=== PATIENT | male | born 1965 | race Caucasian/White ===

== ENCOUNTER 2024-10-12 11:41 | Inpatient (IN) | payer OTHER ==
[2024-10-12 12:48] LABS: Influenza A Ag Negative; Influenza B Ag Negative; SARS-CoV-2 Antigen Rapid Res Negative (Negative)
--- NOTE | 2024-10-12 13:39 | RAD REPORT ---
Procedure: Chest Single View HISTORY: Fever COMPARISON: none FINDINGS: The lungs appear clear of acute infiltrate. No significant pleural effusion noted. The heart appears borderline enlarged. IMPRESSION: No acute abnormality is displayed.
[2024-10-12] MEDS ORDERED: NA CHLORIDE 0.9% 1,000 ML ONE (14:04)
[2024-10-12 14:41] LABS: Absolute Lymphocytes (CBC) 1.5 K/uL (0.7-4.9); Hematocrit 45.1 % (39.6-49.0); Hemoglobin 16.4 g/dL (13.6-17.9); MCH 33.5 pg (27.0-35.0); MCHC 36.3 g/dL (32.0-36.0); MCV 92.1 fL (80-100); MPV 8.6 fL (7.6-11.3); Nucleated RBC Absolute Count 0.0 (0-0); Nucleated Red Blood Cells % 0.0 % (0-0); RBC Red Blood Cell Count 4.90 M/uL (4.33-5.43); White Blood Count 6.70 thou/uL (4.3-10.9)
[2024-10-12 14:55] LABS: ALT/SGPT 62.0 U/L (16-61); AST/SGOT 72.0 U/L (15-37); Albumin 4.1 g/dL (3.4-5.0); Albumin/Globulin Ratio 1.1 (1.1-1.8); Alkaline Phosphatase 82.0 U/L (45-117); Anion Gap 18.0 mEq/L (5.0-15.0); BUN Blood Urea Nitrogen 8.0 mg/dL (7-18); Globulin 3.7 g/dL (2.3-3.5); Glucose Level 99.0 mg/dL (74-106); Lipase 104.0 U/L (13-75); Potassium 4.0 mEq/L (3.5-5.1)
--- NOTE | 2024-10-12 15:00 | ER ---
Nurse's Notes [facility] Name: Gisela Gomes Age: 59 yrs Sex: Male : 1965 Arrival Date: 10/12/2024 Time: 11:41 Bed 15 Private MD: Diagnosis: Hyponatremia, alcoholism Presentation: 10/12 11:49 Chief complaint: EMS states: patient has complains of fevers and "feeling off" for 10 ap3 days. patient reports that he has been taking Tylenol and ibuprofen for his fevers. EMS states his oral temperature was 98.0 on their arrival. Coronavirus screen: Client presents with at least one sign or symptom that may indicate coronavirus-19. Ebola Screen: No symptoms or risks identified at this time. Risk Assessment: Do you want to hurt yourself or someone else? Patient reports no desire to harm self or others. Onset of symptoms was October 02, 2024. 11:49 Method Of Arrival: EMS: [facility] ap3 12:03 Initial Sepsis Screen: Does the patient meet any 2 criteria? No. Patient's initial ar8 sepsis screen is negative. Does the patient have a suspected source of infection? No. Patient's initial sepsis screen is negative. 12:03 Acuity: BIENVENIDO 3 ar8 15:00 Acuity: BIENVENIDO 2 ap3 Triage Assessment: 12:05 General: Appears in no apparent distress. Behavior is calm, cooperative, appropriate ar8 for age. Pain: Denies pain. Historical: - Allergies: 12:05 No Known Allergies; ar8 - PMHx: 12:05 Hypertensive disorder; Atrial fibrillation; ar8 - PSHx: 12:05 None; ar8 - Immunization history:: Adult Immunizations up to date. - Infectious Disease History:: Denies. - Social history:: Smoking status: Patient denies any tobacco usage or history of. Screenin:30 [facility] ED Fall Risk Assessment (Adult) History of falling in the last 3 months, kc6 including since admission No falls in past 3 months (0 pts) Confusion or Disorientation No (0 pts) Intoxicated or Sedated No (0 pts) Impaired Gait No (0 pts) Mobility Assist Device Used No (0 pt) Altered Elimination No (0 pt) Score/Fall Risk Level 0 - 2 = Low Risk Oriented to surroundings. Abuse screen: Denies threats or abuse. Denies injuries from another. Nutritional screening: No deficits noted. Tuberculosis screening: No symptoms or risk factors identified. Assessment: 14:00 Respiratory: Airway is patent Respiratory effort is even, unlabored, Respiratory ap3 pattern is regular, symmetrical. 14:00 General: Reports fever for > 3 days, feeling "off". ap3 14:00 General: Appears in no apparent distress. Behavior is calm, cooperative, appropriate ap3 for age. Neuro: Level of Consciousness is awake, alert, obeys commands, Oriented to person, place, time, situation. Cardiovascular: Patient's skin is warm and dry. 15:30 General: Appears in no apparent distress. comfortable, well groomed, well developed, kc6 Behavior is cooperative, appropriate for age, anxious, Reports fever for > 3 days, feeling ill for > 3 days. Pain: Denies pain. Neuro: Level of Consciousness is awake, alert, obeys commands, Oriented to person, place, time, situation, Appropriate for age. Cardiovascular: Capillary refill < 3 seconds. Respiratory: Airway is patent Trachea midline Respiratory effort is even, unlabored, Respiratory pattern is regular, symmetrical. GI: No signs and/or symptoms were reported involving the gastrointestinal system. : No signs and/or symptoms were reported regarding the genitourinary system. EENT: No signs and/or symptoms were reported regarding the EENT system. Derm: No signs and/or symptoms reported regarding the dermatologic system. Skin is intact, is healthy with good turgor, Skin is pink, warm \\T\\ dry. Musculoskeletal: No signs and/or symptoms reported regarding the musculoskeletal system. Circulation, motion, and sensation intact. Range of motion: intact in all extremities. 16:30 Reassessment: Patient appears in no apparent distress at this time. No changes from kc6 previously documented assessment. Patient and/or family updated on plan of care and expected duration. Pain level reassessed. Patient is alert, oriented x 3, equal unlabored respirations, skin warm/dry/pink. Vital Signs: 12:03 BP 138 / 80; Pulse 74; Resp 20; Temp 98.1; Pulse Ox 98% ; Weight 106.59 kg; Height 5 ar8 ft. 10 in. ; Pain 0/10; 15:03 BP 131 / 79; Pulse 84; Resp 18; Pulse Ox 99% on R/A; ap3 15:36 BP 137 / 76; Pulse 90; Resp 18 S; Pulse Ox 99% on R/A; kc6 16:55 BP 148 / 91; Pulse 91; Resp 19 S; Pulse Ox 98% on R/A; kc6 12:03 Body Mass Index 33.72 (106.59 kg, 177.8 cm) ar8 12:03 Pain Scale: Adult ar8 ED Course: 11:45 Patient arrived in ED. im 11:48 Juancho Rojas MD is Attending Physician. sp3 12:05 Triage completed. ar8 12:05 Arm band placed on right wrist. ar8 13:14 CXR XRAY In Process Unspecified. EDMS 14:09 Inserted saline lock: 20 gauge in right antecubital area, using aseptic technique. ts3 Blood collected. Flushed with 10 mL NS. 14:09 First set of blood cultures drawn by me. ts3 14:19 Second set of blood cultures drawn by me. ts3 14:21 Initial lab(s) drawn, by medical laboratory technicians, sent to lab. ts3 14:59 Abel Cain is Hospitalizing Provider. sp3 15:16 Odalis Juan, RN is Primary Nurse. kc6 15:28 Client placed on continuous cardiac and pulse oximetry monitoring. NIBP monitoring ap3 applied. conveyor monitor on. Pulse ox on. NIBP on. 15:30 Report received from Jessica Goodman RN. kc6 15:30 Patient has correct armband on for positive identification. Bed in low position. Call kc light in reach. Side rails up X 1. conveyor monitor on. Pulse ox on. NIBP on. Door closed. Noise minimized. Lights dimmed. Pillow given. Verbal reassurance given. 15:30 Patient maintains SpO2 saturation greater than 95% on room air. kc6 15:31 CT Abd/Pelvis - IV Contrast Only In Process Unspecified. EDMS 16:08 Kwame San MD is Hospitalizing Provider. sp3 17:28 No provider procedures requiring assistance completed. Patient admitted, IV remains in kc6 place. Administered Medications: 14:13 Drug: NS 0.9% IV 1000 ml IV at 1 bolus Per protocol; to be given as a bolus over 60 ap3 minutes Route: IV; Rate: 1 bolus; Site: right antecubital; 15:30 Follow up: Response: No adverse reaction; IV Status: Completed infusion; IV Intake: kc6 1000ml 16:49 Drug: Ativan IVP 2 mg IVP once Route: IVP; Site: right antecubital; kc6 17:29 Follow up: Response: No adverse reaction; Anxiety decreased; RASS: Alert and Calm (0) kc6 16:49 Drug: Thiamine PO 200 mg PO once Route: PO; kc6 17:29 Follow up: Response: No adverse reaction kc6 Medication: 17:28 VIS not applicable for this client. kc6 Intake: 15:30 IV: 1000ml; Total: 1000ml. kc6 Outcome: 14:59 Decision to Hospitalize by Provider. sp3 16:09 Decision to Hospitalize by Provider. sp3 17:28 Admitted to ER Hold. Please see [facility] for further documentation. kc6 17:28 Condition: stable 17:28 Instructed on the need for admit, 18:18 Patient left the ED. kc6 Signatures: Dispatcher [employer] EDJessica Mosqueda RN RN ap3 Juancho Rojas MD MD sp3 Odalis Juan RN RN kc6 Elena Kamara Taisha ts3 Willian Gann RN RN ar8 Corrections: (The following items were deleted from the chart) 14:22 14:21 Inserted saline lock: 20 gauge in right antecubital area, using aseptic ts3 technique. Blood collected. Flushed with 10 mL NS ts3
--- NOTE | 2024-10-12 15:00 | EDPHYS ---
Physician Documentation [facility] Name: Gisela Gomes Age: 59 yrs Sex: Male : 1965 Arrival Date: 10/12/2024 Time: 11:41 Bed 15 Private MD: ED Physician Juancho Rojas HPI: 10/12 14:05 This 59 yrs old Male presents to ER via EMS with complaints of Fever. sp3 14:05 59-year-old male with history of hypertension presents to the ED with chief complaint sp3 fever for 10 days with Tmax of 102 this morning. He states he has mild dizziness and bodyaches however no other symptoms. He says he feels "dehydrated". Urine output is still normal. He denies any neck pain or stiffness, travel history, known sick contacts, cough, congestion, shortness of breath, chest pain, abdominal pain, vomiting, diarrhea, nausea, syncope, near syncope, rash, symptoms, or any other signs or symptoms on ROS at this time.. Historical: - Allergies: 12:05 No Known Allergies; ar8 - PMHx: 12:05 Hypertensive disorder; Atrial fibrillation; ar8 - PSHx: 12:05 None; ar8 - Immunization history:: Adult Immunizations up to date. - Infectious Disease History:: Denies. - Social history:: Smoking status: Patient denies any tobacco usage or history of. ROS: 14:06 Eyes: Negative for injury, pain, redness, and discharge, ENT: Negative for injury, sp3 pain, and discharge, Neck: Negative for injury, pain, and swelling, Cardiovascular: Negative for chest pain, palpitations, and edema, Respiratory: Negative for shortness of breath, cough, wheezing, and pleuritic chest pain, Abdomen/GI: Negative for abdominal pain, nausea, vomiting, diarrhea, and constipation, Back: Negative for injury and pain, MS/Extremity: Negative for injury and deformity, Skin: Negative for injury, rash, and discoloration, Neuro: Negative for headache, weakness, numbness, tingling, and seizure, Psych: Negative for depression, anxiety, suicide ideation, homicidal ideation, and hallucinations, Allergy/Immunology: Negative for hives, rash, and allergies, Endocrine: Negative for neck swelling, polydipsia, polyuria, polyphagia, and marked weight changes, 14:06 All other systems are negative, Exam: 14:06 Constitutional: This is a well developed, well nourished patient who is awake, alert, sp3 and in no acute distress. Head/Face: Normocephalic, atraumatic. Eyes: Pupils equal round and reactive to light, extra-ocular motions intact. Lids and lashes normal. Conjunctiva and sclera are non-icteric and not injected. Cornea within normal limits. Periorbital areas with no swelling, redness, or edema. Neck: Trachea midline, no thyromegaly or masses palpated, and no cervical lymphadenopathy. Supple, full range of motion without nuchal rigidity, or vertebral point tenderness. No Meningismus. Chest/axilla: Normal chest wall appearance and motion. Nontender with no deformity. No lesions are appreciated. Cardiovascular: Regular rate and rhythm with a normal S1 and S2. No gallops, murmurs, or rubs. Normal PMI, no JVD. No pulse deficits. Respiratory: Lungs have equal breath sounds bilaterally, clear to auscultation and percussion. No rales, rhonchi or wheezes noted. No increased work of breathing, no retractions or nasal flaring. Abdomen/GI: Soft, non-tender, with normal bowel sounds. No distension or tympany. No guarding or rebound. No evidence of tenderness throughout. Back: No spinal tenderness. No costovertebral tenderness. Full range of motion. Skin: Warm, dry with normal turgor. Normal color with no rashes, no lesions, and no evidence of cellulitis. MS/ Extremity: Pulses equal, no cyanosis. Neurovascular intact. Full, normal range of motion. Neuro: Awake and alert, GCS 15, oriented to person, place, time, and situation. Cranial nerves II-XII grossly intact. Motor strength 5/5 in all extremities. Sensory grossly intact. Cerebellar exam normal. Normal gait. Psych: Awake, alert, with orientation to person, place and time. Behavior, mood, and affect are within normal limits. Vital Signs: 12:03 BP 138 / 80; Pulse 74; Resp 20; Temp 98.1; Pulse Ox 98% ; Weight 106.59 kg; Height 5 ar8 ft. 10 in. ; Pain 0/10; 15:03 BP 131 / 79; Pulse 84; Resp 18; Pulse Ox 99% on R/A; ap3 15:36 BP 137 / 76; Pulse 90; Resp 18 S; Pulse Ox 99% on R/A; kc6 16:55 BP 148 / 91; Pulse 91; Resp 19 S; Pulse Ox 98% on R/A; kc6 12:03 Body Mass Index 33.72 (106.59 kg, 177.8 cm) ar8 12:03 Pain Scale: Adult ar8 MDM: 12:07 Medical Screening Exam initiated sp3 14:07 Data reviewed: vital signs, nurses notes, EMS record, lab test result(s), radiologic sp3 studies. ED course: 59-year-old male with PMH above now with Tmax fever of 102 afebrile in the ED. Normal vital signs in ED. Demential diagnosis includes viral illness, influenza, COVID-19, strep pharyngitis, pneumonia, among others. I am not highly suspicious of sepsis, shock or any other critical illness. Chest x-ray and initial swabs are all negative. Will obtain general labs and hydrate patient due to length of symptoms. If workup negative, we will safely discharge patient home with diagnosis of viral illness. Patient in no acute distress resting comfortably. He is okay with the plan.. 14:58 ED course: Discussed with Dr. Emmanuel who states he is checked out to the hospitalist over sp3 the weekend. We will admit to hospitalist service at this time.. 10/12 12:07 Order name: COVID-19 Ag + Flu A+B Ag; Complete Time: 13:47 sp3 10/12 12:07 Order name: Group A Streptococcus Rapid; Complete Time: 13:47 sp3 10/12 12:51 Order name: Throat Culture EDMS 10/12 13:55 Order name: CBC with Diff; Complete Time: 15:45 sp3 10/12 13:55 Order name: CMP; Complete Time: 15:08 sp3 10/12 13:55 Order name: Lipase; Complete Time: 15:08 sp3 10/12 13:55 Order name: Blood Culture Adult (2) sp3 10/12 14:50 Order name: CBC Smear Scan; Complete Time: 15:45 EDMS 10/12 14:57 Order name: UA Rfx Lalito Cult if indicated sp3 10/12 16:10 Order name: Osmolality, Serum la1 10/12 16:10 Order name: Uric Acid la1 10/12 16:10 Order name: Urine Osmolality la1 10/12 16:10 Order name: Urine Sodium Random la1 10/12 16:10 Order name: TSH la1 10/12 16:10 Order name: Cortisol la1 10/12 16:10 Order name: BNP la1 10/12 16:23 Order name: BMP la1 10/12 16:44 Order name: Basic Metabolic Panel EDMS 10/12 16:44 Order name: Basic Metabolic Panel EDMS 10/12 16:44 Order name: Basic Metabolic Panel EDMS 10/12 16:44 Order name: CBC with Automated Diff EDMS 10/12 16:44 Order name: CBC with Automated Diff EDMS 10/12 16:44 Order name: CBC with Automated Diff EDMS 10/12 16:44 Order name: CBC with Automated Diff EDMS 10/12 16:44 Order name: CBC with Automated Diff EDMS 10/12 16:44 Order name: CBC with Automated Diff EDMS 10/12 16:44 Order name: CBC with Automated Diff EDMS 10/12 16:44 Order name: CBC with Automated Diff EDMS 10/12 16:44 Order name: Comprehensive Metabolic Panel EDMS 10/12 16:44 Order name: Comprehensive Metabolic Panel EDMS 10/12 16:44 Order name: Comprehensive Metabolic Panel EDMS 10/12 16:44 Order name: Comprehensive Metabolic Panel EDMS 10/12 16:44 Order name: Comprehensive Metabolic Panel EDMS 10/12 16:44 Order name: Comprehensive Metabolic Panel EDMS 10/12 16:44 Order name: Comprehensive Metabolic Panel EDMS 10/12 16:44 Order name: Comprehensive Metabolic Panel EDMS 10/12 16:44 Order name: Magnesium EDMS 10/12 16:44 Order name: Magnesium EDMS 10/12 16:44 Order name: Magnesium EDMS 10/12 16:44 Order name: Magnesium EDMS 10/12 16:44 Order name: Magnesium EDMS 10/12 16:44 Order name: Magnesium EDMS 10/12 16:45 Order name: Magnesium EDMS 10/12 16:45 Order name: Phosphorus EDMS 10/12 16:45 Order name: Phosphorus EDMS 10/12 16:45 Order name: Phosphorus EDMS 10/12 16:45 Order name: Phosphorus EDMS 10/12 16:45 Order name: Phosphorus EDMS 10/12 16:45 Order name: Phosphorus EDMS 10/12 16:45 Order name: Phosphorus EDMS 10/12 12:07 Order name: CXR XRAY; Complete Time: 13:47 sp3 10/12 15:09 Order name: CT Abd/Pelvis - IV Contrast Only; Complete Time: 15:45 sp3 10/12 16:47 Order name: Delirium Tremens Prophylaxis-IV Meds EDMS 10/12 13:55 Order name: IV Saline Lock; Complete Time: 14:21 sp3 10/12 13:55 Order name: Labs collected and sent; Complete Time: 14:21 sp3 Administered Medications: 14:13 Drug: NS 0.9% IV 1000 ml IV at 1 bolus Per protocol; to be given as a bolus over 60 ap3 minutes Route: IV; Rate: 1 bolus; Site: right antecubital; 15:30 Follow up: Response: No adverse reaction; IV Status: Completed infusion; IV Intake: kc6 1000ml 16:49 Drug: Ativan IVP 2 mg IVP once Route: IVP; Site: right antecubital; kc6 17:29 Follow up: Response: No adverse reaction; Anxiety decreased; RASS: Alert and Calm (0) kc6 16:49 Drug: Thiamine PO 200 mg PO once Route: PO; kc6 17:29 Follow up: Response: No adverse reaction kc6 Disposition Summary: 10/12/24 16:09 Hospitalization Ordered Notes: Hospitalization Status: Inpatient Admission(10/12/24 16:09) sp3 Provider: Kwame San(10/12/24 16:09) sp3 Location: Intensive Care Unit(10/12/24 16:09) sp3 Condition: Stable(10/12/24 16:09) sp3 Problem: an acute exacerbation(10/12/24 16:09) sp3 Symptoms: have worsened(10/12/24 16:09) sp3 Bed/Room Type: Standard(10/12/24 16:09) sp3 Room Assignment: 7-(10/12/24 17:38) eb Diagnosis - Hyponatremia, alcoholism sp3 Forms: - Medication Reconciliation Form sp3 - SBAR form sp3 - Leadership Thank You Letter sp3 Critical care time excluding procedures: 16:08 Critical care time: Bedside Care: 10 minutes, Consultation: 10 minutes, Family sp3 Intervention: 10 minutes. Total time: 30 minutes Signatures: Dispatcher [employer] EDMS Kevin Duque, PASTE WORKER-C PASTE WORKER-Cla1 Jessica Perkins, RN RN ap3 Gisela Killian Setul, MD MD sp3 Odalis Juan RN RN kc6 Willian Gann, RN RN ar8 Corrections: (The following items were deleted from the chart) 13:55 13:55 CBC+H.LAB.BRZ ordered. EDMS EDMS 13:55 13:55 COMPREHENSIVE METABOLIC PANEL+C.LAB.BRZ ordered. EDMS EDMS 13:55 13:55 LIPASE+C.LAB.BRZ ordered. EDMS EDMS 13:55 13:55 BLOOD CULTURE*+BA.LAB.BRZ ordered. EDMS EDMS 15:07 14:59 Observation sp3 sp3 15:07 14:59 Abel Cain sp3 sp3 15:07 14:59 Telemetry/MedSurg (observation) sp3 sp3 15:07 14:59 Stable sp3 sp3 15:07 14:59 an acute exacerbation sp3 sp3 15:07 14:59 have worsened sp3 sp3 15:07 14:59 Standard sp3 sp3 15:07 14:59 sp3 sp3 15:07 14:59 Chest pain, generalized weakness sp3 sp3 16:11 16:10 OSMOLALITY, SERUM+SC.LAB.BRZ ordered. EDMS EDMS 16:11 16:10 URIC ACID+C.LAB.BRZ ordered. EDMS EDMS 16:11 16:10 Osmolality, Urine ordered. EDMS EDMS 16:11 16:10 URINE SODIUM RANDOM+CHEM UR.LAB.BRZ ordered. EDMS EDMS 16:11 16:10 THYROID STIMULAT HORMONE+C.LAB.BRZ ordered. EDMS EDMS 16:11 16:10 Cortisol+C.LAB.BRZ ordered. EDMS EDMS 16:11 16:11 PROBNP+C.LAB.BRZ ordered. EDMS EDMS 17:38 16:09 sp3 eb
[2024-10-12 15:29] LABS: Anisocytosis SLIGHT; Blood Morphology Comment NOTED (NOT SEEN); Macrocytosis SLIGHT; White Blood Cell Scan OK (OK)
--- NOTE | 2024-10-12 15:44 | RAD REPORT ---
EXAMINATION: CT ABDOMEN AND PELVIS WITH CONTRAST CLINICAL INDICATION: Abdominal pain TECHNIQUE: CT abdomen and pelvis was performed, after the administration of 100 cc Isovue-300.. Sagit claus and coronal reconstructions were obtained. One or more of the following dose reduction techniques were used: Automated exposure control, adjustment of the mA and kV according to patient si ze, and iterative reconstruction. Unless otherwise specified, incidental findings do not require dedicated imaging follow-up. [id number]. Oral contrast was not given which limits evaluation of bowel and appendix. COMPARISON: .None FINDINGS: Marked fatty liver. The spleen, pancreas, adrenals and right kidney unremarkable. Small left renal cyst. Normal appendix. Prostate gland moderately enlarged. Anterior bladder wall thickening is asymmetric and more prominent than the remainder of the bladder wall thickening. No evidence of diverticulitis. Moderate anterior subluxation L4 on L5. Spondylolysis L4. Small left inguinal hernia5 : IMPRESSION: Marked fatty liver Asymmetric bladder wall thickening. This all may be secondary to chronic outlet obstruction or inflam mation. A mass could also have this appearance and direct visualization is recommended.
[2024-10-12] MEDS ORDERED: ONDANSETRON 4 MG/2 ML VIAL IV PRN (16:40)
[2024-10-12] MEDS ORDERED: FLUMAZENIL 0.1 MG/ML (5 mL VIAL) IV PRN (16:43)
[2024-10-12] MEDS ORDERED: LORazepam 2 MG/ML VIAL IV PRN (16:43)
[2024-10-12] MEDS ORDERED: THIAMINE HCL 100 MG TABLET ONE (16:44)
[2024-10-12] MEDS: SODIUM CHLORIDE 0.9% 10ML INJ IV PRN (16:49)
[2024-10-12] MEDS: LORazepam 2 MG/ML VIAL IV SCH (16:49)
--- NOTE | 2024-10-12 17:03 | P.HP ---
Certification for Inpatient Patient admitted to: Inpatient With expected LOS: >2 Midnights Patient will require the following post-hospital care: None Practitioner: I am a practitioner with admitting privileges, knowledge of patient current condition, hospital course, and medical plan of care. Services: Services provided to patient in accordance with Admission requirements found in Title 42 Section 412.3 of the Code of Federal Regulations Patient History Date of Service: 10/12/24 Reason for admission: Hyponatremia, alcohol withdrawals History of Present Illness: 59-year-old male with history of atrial fibrillation, hypertension presents the emergency department chief complaint of "feeling unwell". He states he has been feeling sick for the past 10 days or so. Patient does admit to drinking alcohol heavily usually vodka he states 1/2 gallon typically last around 4 days or so his last drink was around 2300 on 10/11. Patient is tremulous at this time and mildly tachycardic. Patient was evaluated in the ER his labs were significant for a sodium of 115 chloride of 77 creatinine 0.58 T. bili 1.6 AST 72 ALT 62 lipase 104 CBC is unremarkable additional workup for his hyponatremia is ordered and pending chest x-ray is negative for acute findings CT of the abdomen pelvis was performed which showed marked fatty liver and asymmetric bladder wall thickening. This may be secondary to chronic outlet obstruction or inflammation. A mass could also have this appearance and direct visualization is recommended. Before his chemistry is back he did receive 1 L of normal saline IV bolus in the ER, I have now ordered for him to receive Ativan and thiamine. Repeat chemistry is ordered and pending patient be admitted to the ICU for further management of hyponatremia and alcohol withdrawals - Past Medical/Surgical History -: Atrial fibrillation -: Hypertension -: None Psychosocial/ Personal History: Lives alone, is retired - Social History Alcohol use: Yes CD- Drugs: No Caffeine use: Yes Place of Residence: Home Review of Systems 10-point ROS is otherwise unremarkable General: Malaise Gastrointestinal: Nausea Physical Examination - Physical Exam General: Alert, In no apparent distress, Oriented x3, Other (Tremulous) HEENT: Atraumatic, PERRLA, Mucous membr. moist/pink, EOMI Neck: Supple, 2+ carotid pulse no bruit, No LAD, Without JVD or thyroid abnormality Respiratory: Clear to auscultation bilaterally, Normal air movement Cardiovascular: Regular rate/rhythm, Normal S1 S2 Gastrointestinal: Normal bowel sounds, No tenderness Musculoskeletal: No tenderness Integumentary: No rashes Neurological: Normal gait, Normal speech, Normal strength at 5/5 x4 extr, Normal affect - Studies Laboratory Data (last 24 hrs) 10/12/24 10/12/24 14:09 14:09 WBC 6.70 Hgb 16.4 Hct 45.1 Plt Count 164 Sodium 115 L* Potassium 4.0 BUN 8 Creatinine 0.58 L Glucose 99 Total Bilirubin 1.6 H AST 72 H ALT 62 H Alkaline Phosphatase 82 Lipase 104 H Assessment and Plan - Plan Assessment: Severe hyponatremia Alcohol use disorder with alcohol withdrawal syndrome History of paroxysmal atrial fibrillation not on chronic anticoagulation Hypertension Incidental finding of asymmetric bladder wall thickening Plan: Severe hyponatremia Initial sodium 115 No previous labs available for comparison but patient reports that he had blood work in June and that was all fine Reports poor oral intake lately, was previously on a GLP-1 for around 6 months up until 1 month ago Does not take any diuretics or thiazides Received 1 L of normal saline in the emergency department bolus Hold any additional fluids at this time and obtain repeat chemistry now Alcohol use disorder with alcohol withdrawal syndrome Counseled on need for cessation Will provide benzodiazepines for alcohol withdrawal Given thiamine now and will be scheduled daily Will start folic acid daily as well History of paroxysmal atrial fibrillation not on chronic anticoagulation Continue sotalol Monitor on telemetry Hypertension Continue carvedilol, losartan, amlodipine Incidental finding of asymmetric bladder wall thickening Discussed need for outpatient follow-up with urology Will monitor for signs of urinary retention during hospitalization DVT PPX: Lovenox Code status: Full code Discharge Plan: Home Plan to discharge in: Greater than 2 days - Advance Directives Does patient have a Living Will: No Does patient have a Durable POA for Healthcare: No - Code Status/Comfort Care Code Status Assessed: Yes (Full code) Critical Care: Yes Time Spent Managing Pts Care (In Minutes): 78
[2024-10-12 17:28] LABS: NT PRO-BNP 1144.0 pg/mL (<125); Thyroid Stimulating Hormone 1.7 uIU/mL (0.358-3.740); Uric Acid 2.2 mg/dL (3.5-7.2)
[2024-10-12 17:36] LABS: Anion Gap 17.9 mEq/L (5.0-15.0); BUN Blood Urea Nitrogen 9.0 mg/dL (7-18); Glucose Level 99.0 mg/dL (74-106); Potassium 3.9 mEq/L (3.5-5.1); Sqamous Epithelial None Seen /HPF (None Seen); Urine Culture Reflex Order NOT NEEDED; Urine Microscopic Reflex YN ORDER UMIC
[2024-10-12] MEDS: SOTALOL HCL 80 MG TAB PO SCH (18:30)
[2024-10-12 18:41] VITALS: BMI 37.5
[2024-10-12] MEDS: SODIUM CHLORIDE 1 GM TAB PO ONE (19:18)
[2024-10-12] MEDS: SODIUM CHLORIDE 1 GM TAB PO SCH (20:22)
[2024-10-12 21:32] LABS: Anion Gap 18.6 mEq/L (5.0-15.0); BUN Blood Urea Nitrogen 10.0 mg/dL (7-18); Glucose Level 92.0 mg/dL (74-106); Magnesium 1.6 mg/dL (1.6-2.4); Potassium 3.6 mEq/L (3.5-5.1)
[2024-10-12] MEDS: MAGNESIUM OXIDE 400 MG TAB PO ONE (21:45)
[2024-10-12] MEDS: POTASS/SODIUM PHOSPHATE 1 PKT POWD.PACK PO ONE (21:54)
[2024-10-12] MEDS: POTASSIUM 25 MEQ EFFERV TAB PO ONE (21:54)
[2024-10-13 01:20] LABS: Anion Gap 15.9 mEq/L (5.0-15.0); BUN Blood Urea Nitrogen 11.0 mg/dL (7-18); Glucose Level 94.0 mg/dL (74-106); Potassium 3.9 mEq/L (3.5-5.1)
[2024-10-13] MEDS ORDERED: SODIUM CHLORIDE 1 GM TAB PO SCH (06:00)
[2024-10-13 06:18] LABS: Absolute Lymphocytes (CBC) 1.6 K/uL (0.7-4.9); Hematocrit 38.6 % (39.6-49.0); Hemoglobin 14.1 g/dL (13.6-17.9); MCH 33.4 pg (27.0-35.0); MCHC 36.5 g/dL (32.0-36.0); MCV 91.6 fL (80-100); MPV 8.6 fL (7.6-11.3); Nucleated RBC Absolute Count 0.0 (0-0); Nucleated Red Blood Cells % 0.1 % (0-0); RBC Red Blood Cell Count 4.21 M/uL (4.33-5.43); White Blood Count 7.40 thou/uL (4.3-10.9)
[2024-10-13] MEDS ORDERED: LORazepam 2 MG/ML VIAL IV PRN (07:39)
[2024-10-13 07:40] LABS: ALT/SGPT 53.0 U/L (16-61); AST/SGOT 49.0 U/L (15-37); Albumin 3.4 g/dL (3.4-5.0); Albumin/Globulin Ratio 1.1 (1.1-1.8); Alkaline Phosphatase 60.0 U/L (45-117); Anion Gap 16.8 mEq/L (5.0-15.0); BUN Blood Urea Nitrogen 12.0 mg/dL (7-18); Globulin 3.2 g/dL (2.3-3.5); Glucose Level 92.0 mg/dL (74-106); Magnesium 1.7 mg/dL (1.6-2.4); Potassium 3.8 mEq/L (3.5-5.1)
[2024-10-13] MEDS: POTASSIUM CL SA 10 MEQ TAB PO ONE (08:50)
[2024-10-13] MEDS: ENOXAPARIN 40 MG/0.4 ML SQ SCH (08:50)
[2024-10-13] MEDS: FOLIC ACID 1 MG TABLET PO SCH (08:50)
[2024-10-13] MEDS: THIAMINE HCL 100 MG TABLET PO SCH (08:51)
[2024-10-13] MEDS: PANTOPRAZOLE 40 MG INJ IVP SCH (08:51)
[2024-10-13] MEDS: MAGNESIUM OXIDE 400 MG TAB PO SCH (08:51)
[2024-10-13] MEDS ORDERED: MAGNESIUM SULFATE 1 gm IVPB 1 GM/100 ML BAG IV ONE (09:00)
[2024-10-13] MEDS ORDERED: LOSARTAN POTASSIUM 50 MG TABLET PO SCH (09:00)
[2024-10-13] MEDS ORDERED: AMLODIPINE 10 MG TAB PO SCH (09:00)
--- NOTE | 2024-10-13 09:20 | P.PN ---
Date of Service: 10/13/24 Subjective: Tremors have improved Drowsy but alert to verbal stimulus and oriented Denies any other concerns at this time No other acute events overnight ROS: 10 point ROS as noted above, otherwise negative Physical exam GEN: Alert, oriented, NAD HEENT: Normal conjunctiva, sclera anicteric CV: Regular rate and rhythm, no edema Pulm: Nonlabored respirations on room air ABD: Soft, nontender, nondistended MSK: No joint tenderness Integumentary: No rashes Neuro: Normal speech, normal affect Vitals reviewed Assessment: Severe hyponatremia SIADH Alcohol use disorder with alcohol withdrawal syndrome History of paroxysmal atrial fibrillation not on chronic anticoagulation Hypertension Incidental finding of asymmetric bladder wall thickening Plan: Severe hyponatremia secondary to SIADH Initial sodium 115, now up to 120 Started on salt tabs, fluid restriction Monitor chemistry every 4 hours for today No previous labs available for comparison but patient reports that he had blood work in June and that was all fine Reports poor oral intake lately, was previously on a GLP-1 for around 6 months up until 1 month ago Does not take any diuretics or thiazides Alcohol use disorder with alcohol withdrawal syndrome Counseled on need for cessation Will provide benzodiazepines for alcohol withdrawal Thiamine and folic acid daily History of paroxysmal atrial fibrillation not on chronic anticoagulation Continue sotalol Monitor on telemetry Has been in sinus rhythm thus far Hypertension Blood pressure soft at this time, continue sotalol hold other antihypertensives until blood pressures persistently elevated Incidental finding of asymmetric bladder wall thickening Discussed need for outpatient follow-up with urology Will monitor for signs of urinary retention during hospitalization DVT PPX: Lovenox Code status: Full code Discharge Plan: Home Plan to discharge in: Greater than 2 days Time Spent Managing Pts Care (In Minutes): 35
[2024-10-13 09:46] LABS: Potassium 3.9 mEq/L (3.5-5.1)
[2024-10-13 09:47] LABS: Anion Gap 14.9 mEq/L (5.0-15.0); BUN Blood Urea Nitrogen 13.0 mg/dL (7-18); Glucose Level 108.0 mg/dL (74-106)
[2024-10-13] MEDS: LORazepam 2 MG/ML VIAL IV PRN (13:11)
[2024-10-13 14:02] LABS: Anion Gap 12.9 mEq/L (5.0-15.0); BUN Blood Urea Nitrogen 12.0 mg/dL (7-18); Glucose Level 101.0 mg/dL (74-106); Potassium 3.9 mEq/L (3.5-5.1)
[2024-10-13] MEDS: ACETAMINOPHEN 325 MG TABLET PO PRN (17:24)
[2024-10-13 17:39] LABS: Anion Gap 12.7 mEq/L (5.0-15.0); BUN Blood Urea Nitrogen 11.0 mg/dL (7-18); Glucose Level 90.0 mg/dL (74-106); Potassium 3.7 mEq/L (3.5-5.1)
[2024-10-13] MEDS: NICOTINE 14 MG/PAT TD SCH (18:06)
[2024-10-13] MEDS ORDERED: UREA 15 GM POWDER PACKET PO ONE (20:19)
[2024-10-13] MEDS: UREA 15 GM POWDER PACKET PO ONE (21:08)
[2024-10-13 22:38] LABS: Anion Gap 9.6 mEq/L (5.0-15.0); BUN Blood Urea Nitrogen 27.0 mg/dL (7-18); Glucose Level 101.0 mg/dL (74-106); Potassium 3.6 mEq/L (3.5-5.1)
--- NOTE | 2024-10-14 01:47 | CON ---
Date of Consultation: 10/13/2024 Chief Complaint: Hyponatremia. History Of Present Illness: The patient is admitted for alcohol withdrawal. He is in ICU. He was found to have severe hyponatremia. Sodium was 115, chloride 77, creatinine 0.58. The patient is a 59-year-old man with history of atrial fibrillation, hypertension. He presented to the hospital emergency room because of not feeling well. He stated that he was feeling sick for past 10 days and had viral infection with fever, although he denied cough, sore throat, headache, vision changes. The patient admitted to drinking alcohol, usually vodka. He stated that typically he consumed half a gallon of alcoholic beverages over last 4 days and was drinking on October 11, the day prior to admission around 2300. He was tachycardic in the emergency room. He was admitted to ICU. Nephrology consultation was requested for hyponatremia. Sodium was 115. Creatinine level 0.8, total bilirubin 1.6, AST 72, ALT 62, lipase 104. CBC was unremarkable. Chest x-ray was negative for acute changes. CT scan of the abdomen and pelvis was performed, which showed marked fatty liver and asymmetric bladder wall thickening. This may be secondary to obstruction or inflammation in the bladder outlet. Mass could also have this appearance and direct visualization was recommended by radiologist. The patient received IV normal saline bolus in the emergency room. He appeared hypotensive and had tachycardia. He received Ativan and thiamine. He appeared hypovolemic and received normal saline infusion with 1 L of normal saline bolus. Repeat chemistry was ordered and results showed sodium of 114. The patient has nonoliguric urine output. Past Medical History: Atrial fibrillation, hypertension. Social History: Alcohol: Yes. Denies drugs. Denies caffeine. Review of Systems: As in H and P. Otherwise, denies complaints. Today, denies pain, nausea, vomiting, confusion, vision changes. Denies shortness of breath, cough, hemoptysis. Denies hematuria, dysuria. Denies incomplete voiding. Denies kidney stones. Denies leg swelling or leg weakness. Denies syncope. Physical Examination: General: The patient is not in acute distress. Eyes: Anicteric. Sclerae EOMI. Ears, Nose, Mouth, Throat: Oral mucosa moist. No pallor. Neck: Supple. No bruits. Lungs: Clear to auscultation bilaterally. Heart: S1, S2. Abdomen: Soft. Extremities: No edema. Laboratory Data: Blood work in the emergency room showed sodium 115, potassium 4.0, BUN 8, creatinine 0.58, glucose 99, total bilirubin , ALT 62, AST 82. Lipase 104. Impression And Plan: 1. Severe hyponatremia, alcohol use disorder with alcohol withdrawal syndrome, history of paroxysmal atrial fibrillation, hypertension, incidental finding of asymmetric bladder wall thickening. The patient has severe hyponatremia. Sodium on arrival was 115. The patient was on IV normal saline and sodium level did not improve, and the patient was started on p.o. fluid restriction as well as sodium chloride tablet. Subsequently, sodium level has gradually improved and the patient is asymptomatic. His symptoms of hyponatremia appear to be chronic hyponatremia and will be treated with fluid restriction and sodium chloride tablets. Consider urea by mouth. IV fluids were stopped. The patient is on p.o. diet and recommendation was made to increase p.o. protein intake as tolerated. Likely hyponatremia is due to alcohol continue antiemetic, although the patient does not nausea or vomiting at this time. 1. Alcohol use disorder with alcohol withdrawal syndrome. Management as per Primary team. He is on thiamine and received benzodiazepine for alcohol withdrawal. 2. History of paroxysmal atrial fibrillation, not on chronic anticoagulation. The patient is on telemetry and further recommendation from Primary team. 3. Hypertension. Continue carvedilol, losartan, amlodipine. Avoid HCTZ. 4. Incidental finding of asymmetric . The patient will need to follow up with Urology. TRACY/LAURENCE Voice ID: [id number] Report ID: [id number] [facility]
[2024-10-14 04:45] LABS: Absolute Lymphocytes (CBC) 1.8 K/uL (0.7-4.9); Hematocrit 39.9 % (39.6-49.0); Hemoglobin 14.3 g/dL (13.6-17.9); MCH 33.6 pg (27.0-35.0); MCHC 36.0 g/dL (32.0-36.0); MCV 93.6 fL (80-100); MPV 9.0 fL (7.6-11.3); Nucleated RBC Absolute Count 0.0 (0-0); Nucleated Red Blood Cells % 0.0 % (0-0); RBC Red Blood Cell Count 4.27 M/uL (4.33-5.43); White Blood Count 6.30 thou/uL (4.3-10.9)
[2024-10-14 05:09] LABS: ALT/SGPT 50.0 U/L (16-61); AST/SGOT 39.0 U/L (15-37); Albumin 3.5 g/dL (3.4-5.0); Albumin/Globulin Ratio 1.1 (1.1-1.8); Alkaline Phosphatase 62.0 U/L (45-117); Anion Gap 13.6 mEq/L (5.0-15.0); BUN Blood Urea Nitrogen 19.0 mg/dL (7-18); Globulin 3.3 g/dL (2.3-3.5); Glucose Level 95.0 mg/dL (74-106); Magnesium 1.8 mg/dL (1.6-2.4); Potassium 3.6 mEq/L (3.5-5.1)
[2024-10-14] MEDS: POTASSIUM CL SA 10 MEQ TAB PO ONE (08:00)
--- NOTE | 2024-10-14 09:45 | P.PN ---
Date of Service: 10/14/24 Subjective: Alert and oriented Has only needed to receive 1 mg of Ativan each shift for anxiety No severe alcohol withdrawal symptoms Sodium slowly improving now over 120 Stable for downgrade to floor ROS: 10 point ROS as noted above, otherwise negative Physical exam GEN: Alert, oriented, NAD HEENT: Normal conjunctiva, sclera anicteric CV: Regular rate and rhythm, no edema Pulm: Nonlabored respirations on room air ABD: Soft, nontender, nondistended MSK: No joint tenderness Integumentary: No rashes Neuro: Normal speech, normal affect Vitals reviewed Assessment: Severe hyponatremia SIADH Alcohol use disorder with alcohol withdrawal syndrome History of paroxysmal atrial fibrillation not on chronic anticoagulation Hypertension Incidental finding of asymmetric bladder wall thickening Plan: Severe hyponatremia secondary to SIADH Initial sodium 115, now up to 122 Started on salt tabs, fluid restriction Monitor chemistry every 4 hours for today No previous labs available for comparison but patient reports that he had blood work in June and that was all fine Reports poor oral intake lately, was previously on a GLP-1 for around 6 months up until 1 month ago Does not take any diuretics or thiazides Alcohol use disorder with alcohol withdrawal syndrome Counseled on need for cessation Will provide benzodiazepines for alcohol withdrawal Thiamine and folic acid daily History of paroxysmal atrial fibrillation not on chronic anticoagulation Continue sotalol Monitor on telemetry Has been in sinus rhythm thus far Hypertension Blood pressure soft at this time, continue sotalol hold other antihypertensives until blood pressures persistently elevated May resume other home blood pressure medications once blood pressure is persistently elevated Incidental finding of asymmetric bladder wall thickening Discussed need for outpatient follow-up with urology Will monitor for signs of urinary retention during hospitalization DVT PPX: Lovenox Code status: Full code Discharge Plan: Home Plan to discharge in: Greater than 2 days Time Spent Managing Pts Care (In Minutes): 35
[2024-10-14] MEDS: SODIUM CHLORIDE 1 GM TAB PO SCH (10:22)
[2024-10-14] MEDS: UREA 15 GM POWDER PACKET PO SCH (10:22)
[2024-10-14 11:15] LABS: Anion Gap 8.9 mEq/L (5.0-15.0); BUN Blood Urea Nitrogen 18.0 mg/dL (7-18); Glucose Level 105.0 mg/dL (74-106); Potassium 3.9 mEq/L (3.5-5.1)
[2024-10-14] MEDS: LORazepam 2 MG/ML VIAL IV PRN (12:04)
[2024-10-14] MEDS: NA CHLORIDE 0.9% 1,000 ML IV SCH (12:39)
[2024-10-14 16:16] LABS: Anion Gap 12.9 mEq/L (5.0-15.0); BUN Blood Urea Nitrogen 24.0 mg/dL (7-18); Glucose Level 89.0 mg/dL (74-106); Potassium 3.9 mEq/L (3.5-5.1)
[2024-10-14] MEDS ORDERED: LORazepam 2 MG/ML VIAL IV SCH (17:00)
[2024-10-14 20:40] LABS: Anion Gap 11.1 mEq/L (5.0-15.0); BUN Blood Urea Nitrogen 22.0 mg/dL (7-18); Glucose Level 89.0 mg/dL (74-106); Potassium 4.1 mEq/L (3.5-5.1)
--- NOTE | 2024-10-14 22:09 | PN ---
Date of Progress Note: 10/14/2024 Chief Complaint: Severe hyponatremia. Subjective: The patient is admitted for alcohol withdrawal to ICU. He was found to have severe hypo natremia. Sodium was 115, chloride 77, creatinine 0.56. The patient is a 59-year-old man with histo ry of atrial fibrillation, hypertension. He came to emergency room because he was not feeling well. He stated he was feeling sick for 10 days and had viral infection, fever, although he denies cough, sore throat, headache, vision changes. The patient admitted to drinking alcohol, usually vodka. Fidel prasad stated that he typically consumed half a gallon of alcoholic beverages. Chest x-ray was negative for acute changes. He was found to have elevated AST of 72, ALT of 62, lipa se of 104. Review of Systems: Denies chest pain, palpitation. Physical Examination: Lungs: Clear to auscultation bilaterally. Heart: S1, S2. Abdomen: Soft, benign. Extremities: No edema. Impression And Plan: 1. Severe hyponatremia, alcohol use disorder with alcohol withdrawal syndrome, history of paroxysmal atrial fibrillation, hypertension, incidental finding of asymmetric bladder wall thickening. The fidel prasad has severe hyponatremia and he was started on treatment with sodium chloride tablets and primari ly he received IV normal saline to treat hypovolemia. The patient is improving and he is feeling bet ter. Sodium level is gradually improving. The plan is to adjust medication, increase sodium chlorid e tablets and advance sodium urea for treatment of hyponatremia. The patient will increase p.o. prot ein intake. 2. Hypertension. The patient will continue carvedilol, losartan, amlodipine. Avoid HCTZ. 3. Alcohol use with alcohol withdrawal syndrome. Management per Primary team. The patient is on thi amine. Received benzodiazepine. Avoid nonsteroidal anti-inflammatory medications. The patient is on p.o. intake and he tolerates p.o. protein. Continue to increase p.o. protein intak e as tolerated. Hyponatremia is likely related to alcohol intake. Continue antiemetics and pain man agement as needed. EB/MODL Voice ID: [id number] Report ID: [id number]
[2024-10-15] MEDS: SODIUM CHLORIDE 1 GM TAB PO SCH ×2 (00:16→16:42)
[2024-10-15 00:53] LABS: Anion Gap 11.8 mEq/L (5.0-15.0); BUN Blood Urea Nitrogen 20.0 mg/dL (7-18); Glucose Level 93.0 mg/dL (74-106); Potassium 3.8 mEq/L (3.5-5.1)
[2024-10-15 05:42] LABS: Absolute Lymphocytes (CBC) 0.4 K/uL (0.7-4.9); Hematocrit 38.1 % (39.6-49.0); Hemoglobin 13.9 g/dL (13.6-17.9); MCH 33.9 pg (27.0-35.0); MCHC 36.5 g/dL (32.0-36.0); MCV 92.9 fL (80-100); MPV 8.5 fL (7.6-11.3); Nucleated RBC Absolute Count 0.0 (0-0); Nucleated Red Blood Cells % 0.1 % (0-0); RBC Red Blood Cell Count 4.10 M/uL (4.33-5.43); White Blood Count 5.60 thou/uL (4.3-10.9)
[2024-10-15 06:07] LABS: ALT/SGPT 48.0 U/L (16-61); AST/SGOT 35.0 U/L (15-37); Albumin 3.5 g/dL (3.4-5.0); Albumin/Globulin Ratio 1.1 (1.1-1.8); Alkaline Phosphatase 63.0 U/L (45-117); Anion Gap 11.6 mEq/L (5.0-15.0); BUN Blood Urea Nitrogen 13.0 mg/dL (7-18); Globulin 3.2 g/dL (2.3-3.5); Glucose Level 88.0 mg/dL (74-106); Magnesium 1.7 mg/dL (1.6-2.4); Potassium 3.6 mEq/L (3.5-5.1)
[2024-10-15] MEDS: MAGNESIUM SULFATE 1 gm IVPB 1 GM/100 ML BAG IV ONE (06:32)
[2024-10-15] MEDS: PANTOPRAZOLE 40MG TABLET PO SCH (08:26)
[2024-10-15] MEDS: POTASSIUM CL SA 10 MEQ TAB PO ONE (08:27)
[2024-10-15] MEDS: ENSURE HIGH PROTEIN 237 ML CAN PO SCH (08:27)
[2024-10-15] MEDS: VITAMIN D 1000 UNIT TAB PO SCH (08:35)
[2024-10-15] MEDS: TOLVAPTAN 15 MG TABLET PO ONE (12:18)
[2024-10-15 12:35] VITALS: O2SAT 95
[2024-10-15] MEDS: MAGNESIUM OXIDE 400 MG TAB PO SCH (20:01)
[2024-10-15 20:33] LABS: Anion Gap 7.7 mEq/L (5.0-15.0); BUN Blood Urea Nitrogen 10.0 mg/dL (7-18); Glucose Level 104.0 mg/dL (74-106); Potassium 3.7 mEq/L (3.5-5.1)
[2024-10-15 22:48] LABS: UR CREAT 31.0 mg/dL (20-370); UR MICROALBUMIN 1.6 mg/dL (< 1.9)
[2024-10-15] MEDS: D5W 1,000 ML IV SCH (22:48)
[2024-10-15 23:33] LABS: UR PROTEIN 6.7 mg/dL (<11.9); UR SODIUM 38.0 mmol/L (27-287)
--- NOTE | 2024-10-16 02:55 | PN ---
Date of Progress Note: 10/15/2024 Chief Complaint: Severe hyponatremia. Subjective: The patient is admitted for alcohol withdrawal and was admitted to ICU. He was found to have severe hyponatremia. Sodium level was 115, chloride 77, creatinine 0.56. The patient did not have symptoms of hyponatremia. The patient is a 59-year-old man with history of atrial fibrillation, hypertension. He came to emergency room because he was not feeling well. He stated he was feeling sick for 10 days and has viral infection, fever, although he denies cough, sore throat, headaches, vi tamera changes. The patient did admit to drinking alcohol prior to this admission and usually he drink s vodka. The patient stated that typically he consume half a gallon of alcohol . Chest x- ray was negative for acute changes. He was found to have elevated AST of 72, ALT of 62, lipase 104. Review of Systems: The patient denies fever, chills. Denies syncope. Physical Examination: Lungs: Clear to auscultation bilaterally. Heart: S1, S2. Abdomen: Soft. Extremities: No edema. Impression And Plan: 1. Severe hyponatremia, alcohol use disorder with alcohol withdrawal syndrome, history of paroxysmal atrial fibrillation, hypertension, incidental finding of asymmetric bladder wall thickening. The pat ient has severe hyponatremia and he was started treatment with sodium chloride tablets and primarily he received IV normal saline bolus to treat hypovolemia. The patient is improving and he is feeling better. Sodium level is gradually improving. The patient was started on sodium urea by mouth, altho ugh he developed diarrhea and urea sodium was stopped. 2. Hypertension. Continue carvedilol, losartan, amlodipine. Avoid hydrochlorothiazide. 3. Alcohol use with alcohol withdrawal syndrome. The patient received benzodiazepine. 4. Hyponatremia, likely related to alcohol intake, although there is some element of SIADH. The zeus ent was started on tolvaptan and first dose was ordered for today 15 mg. Continue to monitor renal p samantha closely. EB/MODL Voice ID: [id number] Report ID: [id number]
[2024-10-16 05:56] LABS: Absolute Lymphocytes (CBC) 1.0 K/uL (0.7-4.9); Hematocrit 41.9 % (39.6-49.0); Hemoglobin 14.7 g/dL (13.6-17.9); MCH 33.7 pg (27.0-35.0); MCHC 35.1 g/dL (32.0-36.0); MCV 96.2 fL (80-100); MPV 9.1 fL (7.6-11.3); Nucleated RBC Absolute Count 0.0 (0-0); Nucleated Red Blood Cells % 0.1 % (0-0); RBC Red Blood Cell Count 4.36 M/uL (4.33-5.43); White Blood Count 4.30 thou/uL (4.3-10.9)
[2024-10-16 06:11] LABS: ALT/SGPT 53.0 U/L (16-61); AST/SGOT 38.0 U/L (15-37); Albumin 3.5 g/dL (3.4-5.0); Albumin/Globulin Ratio 1.0 (1.1-1.8); Alkaline Phosphatase 66.0 U/L (45-117); Anion Gap 8.4 mEq/L (5.0-15.0); BUN Blood Urea Nitrogen 9.0 mg/dL (7-18); Globulin 3.5 g/dL (2.3-3.5); Glucose Level 124.0 mg/dL (74-106); Magnesium 2.0 mg/dL (1.6-2.4); Potassium 3.4 mEq/L (3.5-5.1)
--- NOTE | 2024-10-16 09:22 | RAD REPORT ---
EXAMINATION: US RETROPERITONEUM CLINICAL INDICATION: renal cysts, htn kidney disease TECHNIQUE: Real-time ultrasonography of the abdomen was performed. COMPARISON: CT 10/12/2024 FINDINGS: RIGHT KIDNEY: Right renal length measurement: 11 cm. Echogenicity is normal. No calculus or solid ma ss. No hydronephrosis. . LEFT KIDNEY: Left renal length measurement: 11.8 cm. Echogenicity is normal. No calculus or solid m ass. No hydronephrosis. . Benign left renal sinus cyst measuring 2 cm. ADDITIONAL FINDINGS: N/A IMPRESSION: Benign left renal sinus cyst. No evidence of hydronephrosis.
[2024-10-16 10:41] LABS: Anion Gap 8.0 mEq/L (5.0-15.0); BUN Blood Urea Nitrogen 12.0 mg/dL (7-18); Glucose Level 135.0 mg/dL (74-106)
[2024-10-16 10:42] LABS: Potassium 4.0 mEq/L (3.5-5.1)
--- NOTE | 2024-10-16 16:06 | PN ---
Date of Progress Note: 10/16/2024 Subjective: The patient was admitted with alcoholic intoxication. Patient had hyponatremia. Patien t received tolvaptan yesterday. Physical Examination: Vital Signs: Blood pressure 143/97, pulse of 100, afebrile. Chest: Clear to auscultation. Heart: S1, S2. Regular. Abdomen: Soft, nontender. Extremities: No edema. Neurologic: Alert. No focality. No tremor. Laboratory Data: Hemoglobin 14.7, sodium 134, potassium 4, bicarb 29, BUN 12, creatinine 0.7, calciu m 9.4. Current Medications: The patient on, it includes nicotine patch, sotalol, Lovenox, lorazepam, tolvap cardoza received yesterday, D5, magnesium oxide, KCl. Assessment And Plan: 1. Hyponatremia secondary to SIADH/beer potomania, status post tolvaptan. Patient had appropriate ri se in the sodium. Discontinue IV fluid. Repeat sodium in the afternoon. If sodium stay stable, the patient cleared from the Renal standpoint for discharge planning. 2. Hypertension, controlled, optimal. Continue current treatment. 3. Hypokalemia. We will supplement. 4. Hypomagnesemia. We will supplement. KASSANDRA/LAURENCE Voice ID: [id number] Report ID: [id number]
[2024-10-16] MEDS: LORAZEPAM 1 MG TABLET PO ONE (16:56)
[2024-10-16 17:01] VITALS: BP 140/90; TEMP 97.9
[2024-10-16 17:06] LABS: Albumin 3.5 g/dL (3.4-5.0); Anion Gap 10.6 mEq/L (5.0-15.0); BUN Blood Urea Nitrogen 11.0 mg/dL (7-18); Glucose Level 116.0 mg/dL (74-106); Potassium 3.6 mEq/L (3.5-5.1)
--- NOTE | 2024-10-16 17:35 | P.PN ---
Subjective Date of Service: 10/15/24 Chief Complaint: Hyponatremia, alcohol withdrawals Patient denies any new complaint. He states that he desires to go home. No tremors. He has been ambulatory and tolerating his diet. Physical Examination - Vital Signs Temperature: 97.9 F Blood Pressure: 140/90 Pulse: 97 Respirations: 18 Pulse Ox (%): 98 - Studies Microbiology Data (last 24 hrs): 10/12/24 12:15 Throat Culture & Sensitivity - Final Assessment And Plan - Plan Physical exam GEN: Alert, oriented, NAD HEENT: Normal conjunctiva, sclera anicteric CV: Regular rate and rhythm, no edema Pulm: Clear to auscultation bilaterally, adequate breath sounds bilaterally. ABD: Soft, nontender, nondistended MSK: No joint tenderness Integumentary: No rashes Neuro: Normal speech, normal affect Vitals reviewed Assessment: Severe hyponatremia SIADH Alcohol use disorder with alcohol withdrawal syndrome History of paroxysmal atrial fibrillation not on chronic anticoagulation Hypertension Incidental finding of asymmetric bladder wall thickening Plan: Severe hyponatremia secondary to SIADH Initial sodium 115, now up to 122 Started on salt tabs, fluid restriction Monitor chemistry every 4 hours for today No previous labs available for comparison but patient reports that he had blood work in June and that was all fine Reports poor oral intake lately, was previously on a GLP-1 for around 6 months up until 1 month ago Does not take any diuretics or thiazides Alcohol use disorder with alcohol withdrawal syndrome Counseled on need for cessation Will provide benzodiazepines for alcohol withdrawal Thiamine and folic acid daily History of paroxysmal atrial fibrillation not on chronic anticoagulation Continue sotalol Monitor on telemetry Has been in sinus rhythm thus far Hypertension Blood pressure soft at this time, continue sotalol hold other antihypertensives until blood pressures persistently elevated May resume other home blood pressure medications once blood pressure is persistently elevated Incidental finding of asymmetric bladder wall thickening Discussed need for outpatient follow-up with urology Will monitor for signs of urinary retention during hospitalization 10/16 Sodium level improved to 125. Hyponatremia likely related to beer/alcohol potomania and SIADH Nephrology input appreciated Sodium level improved to 121 with IV NS and fluid restriction. Patient given a dose of tolvaptan. Continue to monitor BMP closely, avoid overcorrection by greater than 10 to 12 mEq/day Continue thiamine, folic acid for impending alcohol withdrawal. Patient is on Ativan as needed for alcohol withdrawal. Heart rate stable and in sinus rhythm with sotalol Continue sotalol. Urology follow-up as outpatient for asymmetric bladder wall thickening. DVT PPX: Lovenox Code status: Full code
--- NOTE | 2024-10-16 17:41 | P.DS ---
Admission Date: 10/12/24 Discharge Date: 10/16/24 Disposition: ROUTINE DISCHARGE Discharge Condition: FAIR Reason for Admission: Hyponatremia, alcohol withdrawals Brief History of Present Illness: 59-year-old male with history of atrial fibrillation, hypertension presents the emergency department chief complaint of feeling sick for 10 days.. Patient reported he drinks alcohol heavily, about 1/2 gallon of vodka will last 4 days,m last drink 10/11. Patient was tremulous during examination in the ED. Patient was evaluated in the ER his labs were significant for a sodium of 115 chloride of 77 creatinine 0.58 T. bili 1.6 AST 72 ALT 62 lipase 104 CBC is unremarkable additional workup for his hyponatremia is ordered and pending chest x-ray is negative for acute findings CT of the abdomen pelvis was performed which showed marked fatty liver and asymmetric bladder wall thickening. This may be secondary to chronic outlet obstruction or inflammation. A mass could also have this appearance and direct visualization is recommended. Patient given IV NS for hyponatremia and admitted for further management Hospital Course: Diagnosis Severe hyponatremia secondary to SIADH Alcohol use disorder with alcohol withdrawal syndrome History of paroxysmal atrial fibrillation not on chronic anticoagulation Hypertension Incidental finding of asymmetric bladder wall thickening Patient admitted to the medical floor and the following medical problems addressed: Severe hyponatremia secondary to SIADH Initial sodium 115. Patient treated with fluid restriction and salt tablet, sodium level improved to 125 She was seen and evaluated by nephrology who prescribed a dose of tolvaptan Sodium level improved to 135 and stabilized Patient seen and evaluated by nephrology and deemed stable for discharge. Alcohol cessation advised. Alcohol use disorder with alcohol withdrawal syndrome Patient was counseled on need for cessation He was placed on benzodiazepines for alcohol withdrawal, thiamine and folic acid. History of paroxysmal atrial fibrillation not on chronic anticoagulation Stable on sotalol during the hospital stay. Patient initially had soft blood pressures so his beta-katherine was held. Blood pressure improved. Both sotalol and beta-katherine were resumed on discharge. Incidental finding of asymmetric bladder wall thickening Discussed need for outpatient follow-up with urology Vital Signs/Physical Exam: Temp Pulse Resp BP Pulse Ox 97.9 F 97 H 18 140/90 98 10/16/24 17:34 10/16/24 17:34 10/16/24 17:34 10/16/24 17:34 10/16/24 17:34 General: Alert, In no apparent distress, Oriented x3 HEENT: Mucous membr. moist/pink, Sclerae nonicteric Neck: Supple, JVD not distended Respiratory: Clear to auscultation bilaterally, Normal air movement Cardiovascular: No edema, Regular rate/rhythm, Normal S1 S2 Gastrointestinal: Normal bowel sounds, Soft and benign, Non-distended, No tenderness Musculoskeletal: No swelling Integumentary: No rashes, No cyanosis Neurological: Normal speech, Normal strength at 5/5 x4 extr, Cranial nerves 3-12 intact Laboratory Data at Discharge: WBC 4.30 thou/uL (4.3-10.9) 10/16/24 05:06 Hgb 14.7 g/dL (13.6-17.9) 10/16/24 05:06 Hct 41.9 % (39.6-49.0) 10/16/24 05:06 Plt Count 133 thou/uL (152-406) L 10/16/24 05:06 Sodium 135 mEq/L (136-145) L 10/16/24 16:40 Potassium 3.6 mEq/L (3.5-5.1) 10/16/24 16:40 BUN 11 mg/dL (7-18) 10/16/24 16:40 Creatinine 0.77 mg/dL (0.70-1.30) 10/16/24 16:40 Glucose 116 mg/dL (74-106) H 10/16/24 16:40 Uric Acid 3.8 mg/dL (3.5-7.2) 10/15/24 05:25 Phosphorus 3.3 mg/dL (2.5-4.9) 10/16/24 16:40 Magnesium 2.0 mg/dL (1.6-2.4) 10/16/24 05:06 Total Bilirubin 0.4 mg/dL (0.2-1.0) 10/16/24 05:06 AST 38 U/L (15-37) H 10/16/24 05:06 ALT 53 U/L (16-61) 10/16/24 05:06 Alkaline Phosphatase 66 U/L (45-117) 10/16/24 05:06 Lipase 104 U/L (13-75) H 10/12/24 14:09 Home Medications: Amlodipine [Norvasc*] 10 mg PO DAILY 10/12/24 Losartan Potassium [Cozaar*] 50 mg PO DAILY 10/12/24 Oxymetazoline HCl [12 Hour Nasal [place]] 30 ml NS BID 10/12/24 Sotalol HCl [Sotalol] 40 mg PO BID 10/12/24 Triamcinolone Acetonide [24 Hour Nasal Allergy] 16.9 ml NS DAILY 10/12/24 carvediloL [Carvedilol] 25 mg PO BID 10/12/24 Folic Acid 1 mg PO DAILY #30 tab 10/16/24 Thiamine HCl [Vitamin B-1*] 100 mg PO DAILY #30 tab 10/16/24 New Medications: Folic Acid 1 mg PO DAILY #30 tab Thiamine HCl [Vitamin B-1*] 100 mg PO DAILY #30 tab Physician Discharge Instructions: CT scan of the abdomen and pelvis done during this hospital stay showed you have asymmetrical thickening in the bladder wall. It is important you see a urologist to examine you to make sure you do not have bladder cancer. He has been given urologist information to call for an appointment. Your low sodium level is due to excessive alcohol intake. It is recommended you stop drinking alcohol to reduce risk of alcohol-related complications including electrolyte abnormalities, neuropathy, hypertension, carlos er disease, heart disease. Fall precautions advised. Diet: AHA Activity: Fall precautions Followup: Danielle King MD [ACTIVE - CAN ADMIT] - 1-2 Weeks Mello Coello MD [Primary Care Provider] - 1 Week Girma Mcdaniel [ACTIVE - CAN ADMIT] - 1-2 Weeks (Asymmetric bladder wall thickening) Time spent managing pt's care (in minutes): 40
== END 2024-10-16 18:15 | disposition home or self-care (01) | DRG 644 ==
LOC: ER 11:41 → ERHOLD 16:39 → 3RD-ICU 18:02 → 4TH 10-14 09:47
PROVIDERS: ADMIT Hospitalist; ATTEND Internal Medicine
DX: E22.2 Syndrome of inappropriate secretion of antidiuretic hormone (principal); F10.239 Alcohol dependence with withdrawal, unspecified; I10 Essential (primary) hypertension; I48.0 Paroxysmal atrial fibrillation; Z71.41 Alcohol abuse counseling and surveillance of alcoholic; Z79.899 Other long term (current) drug therapy; Z23 Encounter for immunization; Z11.52 Encounter for screening for COVID-19
CPT/HCPCS: 36415; 71045; 74177; 76770; 80048; 80053; 80069; 81001; 82043; 82306; 82533; 82550; 82570; 83690; 83735; 83880; 83930; 83935; 84100; 84156; 84300; 84443; 84550; 85025; 87040; 87070; 87428; 96361; 96374; 99285; J1650; J2470; J3475; J7030; J8499; Q9967